=== PATIENT | female | born 1990 | race Caucasian/White ===

== ENCOUNTER 2022-03-21 20:38 | Emergency (ER) | payer BC ==
[~2022-03-21] VITALS: Ht 162.6 cm; Wt 72.6 kg
[2022-03-21] MEDS ORDERED: ESCI20TA39 (21:00)
[2022-03-21] MEDS ORDERED: ONDANSETRON 4 MG/2 ML (SDV) Z0FRAN IVP ONE (21:00)
[2022-03-21] MEDS ORDERED: FAMOTIDINE 20MG/2ML IV (PEPCID) IVP ONE (21:00)
[2022-03-21] MEDS ORDERED: diphenhydrAMINE 50 MG/ML INJ (BENADRYL) IM ONE (21:00)
[2022-03-21] MEDS ORDERED: methylPREDNISolone 125 MG (Solu-MEDROL) VIAL IVP ONE (21:00)
[2022-03-21] MEDS ORDERED: NS IV 1000 ML 1,000 ML IV STA (21:07)
--- NOTE | 2022-03-21 21:16 | ED General ---
General Chief Complaint: Allergic Reaction Stated Complaint: ALLERGIC REACTION - RASH ALL OVER Source of Information: Patient Exam Limitations: No Limitations History of Present Illness Date Seen by Provider: Mar 21, 2022 Time Seen by Provider: 21:14 Initial Comments This is a 31-year-old female that presents to the emergency room for evaluation of a possible allergic reaction. She states that she was at a [employer] and had a drink with blueberries and and she started feeling flushed and having a rash. 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 She subsequently started developing significant nausea and vomiting which did happen with her previous allergic reaction as well. She took 1 Benadryl but vomited shortly thereafter. Timing/Duration: 1 Day Severity: Moderate Allergies and Home Medications Allergies Coded Allergies: blueberry (Verified Allergy, Unknown, 03/21/22) strawberry (Verified Allergy, Unknown, Anaphylaxis, 03/21/22) Uncoded Allergies: contrast (Allergy, Unknown, 03/21/22) Patient Home Medication List Home Medication List Reviewed: Yes Diphenhydramine HCl (Benadryl) 25 Mg Capsule, 25 MG PO QID Prescribed by: Prabhjot Walls on 03/21/222209 Escitalopram Oxalate (Escitalopram Oxalate) 20 Mg Tablet, (Reported) Entered as Reported by: JOSE LOPEZ on 03/21/222099 Last Action: New Order Famotidine (Pepcid) 20 Mg Tablet, 20 MG PO BID Prescribed by: Prabhjot Walls on 03/21/222209 Prednisone (Prednisone) 20 Mg Tab, 20 MG PO BID Prescribed by: Prabhjot Walls on 03/21/222209 Review of Systems Review of Systems Constitutional: no symptoms reported EENTM: no symptoms reported Respiratory: no symptoms reported Cardiovascular: no symptoms reported Gastrointestinal: nausea, vomiting Genitourinary: no symptoms reported Musculoskeletal: no symptoms reported Skin: rash Psychiatric/Neurological: No Symptoms Reported Hematologic/Lymphatic: No Symptoms Reported Immunological/Allergic: no symptoms reported Past Ropxnum-Pppbyu-Kmpcdn Hx Patient Social History Tobacco Use?: No Substance use?: No Alcohol Use?: Yes Alcohol Frequency: Once in a while Pt feels they are or have been: No Past Medical History Surgery/Hospitalization HX: cervical fusion, ankle, cholecystectomy, shoulder Physical Exam Vital Signs Vital Signs - First Documented 03/21/22 20:50 Temp 36.4 Pulse 122 Resp 18 B/P (MAP) 120/81 (94) Pulse Ox 99 O2 Delivery Room Air Capillary Refill : Height, Weight, BMI Height: '" Weight: lbs. oz. kg; BMI Method: General Appearance: Mild Distress HEENT: PERRL/EOMI, TMs Normal, Pharynx Normal Neck: Full Range of Motion Respiratory: Chest Non Tender, Lungs Clear Cardiovascular: Tachycardia Gastrointestinal: Normal Bowel Sounds, Non Tender Back: Normal Inspection Extremity: Normal Capillary Refill, Non Tender Skin: Normal Color, Warm/Dry Progress/Results/Core Measures Suspected Sepsis SIRS Temperature: Pulse: Respiratory Rate: Blood Pressure / Mean: Results/Orders My Orders Orders - ADRIAN WALLS Ed Iv/Invasive Line Start (03/21/22 20:48) Diphenhydramine Injection (Benadryl Inje (03/21/22 21:00) Methylprednisolone Sod Succ (Solu-Medrol (03/21/22 21:00) Famotidine Injection (Pepcid Injection) (03/21/22 21:00) Ondansetron Injection (Zofran Injectio (03/21/22 21:00) Ns Iv 1000 Ml (Sodium Chloride 0.9%) (03/21/22 21:07) Medications Given in ED Current Medications Medications Dose Ordered Sig/Brigido Route Start Time Stop Time Status Last Admin Dose Admin Diphenhydramine HCl 25 mg ONCE ONCE IM 03/21/22 21:00 03/21/22 21:01 DC 03/21/22 20:56 25 MG Famotidine 20 mg ONCE ONCE IVP 03/21/22 21:00 03/21/22 21:01 DC 03/21/22 20:56 20 MG Methylprednisolone Sodium Succinate 125 mg ONCE ONCE IVP 03/21/22 21:00 03/21/22 21:01 DC 03/21/22 20:56 125 MG Ondansetron HCl 4 mg ONCE ONCE IVP 03/21/22 21:00 03/21/22 21:01 DC 03/21/22 21:13 4 MG Vital Signs/I&O 03/21/22 20:50 Temp 36.4 Pulse 122 Resp 18 B/P (MAP) 120/81 (94) Pulse Ox 99 O2 Delivery Room Air Capillary Refill : Departure Communication (Admissions) Patient is afebrile and tachycardic on exam. She states that she is always tachycardic and that she is supposed to be on medications but she has recently lost her primary care doctor. She was actively vomiting on exam and states this is normal when she has an allergic reaction. There is no visible rash at this time but she did show me a picture on her phone where she had some redness around the incision site on the left anterior neck. Impression Primary Impression: Allergic reaction Additional Impression: Nausea and vomiting Disposition: HOME, SELF-CARE Condition: Stable Departure-Patient Inst. Decision time for Depature: 22:12 Referrals: NO,LOCAL PHYSICIAN (PCP/Family) Primary Care Physician Patient Instructions: Skin Rash (DC), Nausea and Vomiting, Adult Scripts Prednisone (Prednisone) 20 Mg Tab 20 MG PO BID for 5 Days, #10 TAB Take 3 tabs(60mg)daily,decrease by 1/2 tab(10mg)every other day. Prov: ADRIAN WALLS 03/21/22 Famotidine (Pepcid) 20 Mg Tablet 20 MG PO BID for 5 Days, #10 TAB Prov: ADRIAN WALLS 03/21/22 Diphenhydramine HCl (Benadryl) 25 Mg Capsule 25 MG PO QID for 5 Days, #20 CAP Prov: ADRIAN WALLS 03/21/22 ADRIAN WALLS Mar 21, 2022 21:15
[2022-03-21] MEDS ORDERED: FAMO-119 PO (22:10)
[2022-03-21] MEDS ORDERED: DIPH25CA79 PO (22:10)
[2022-03-21] MEDS ORDERED: PRD20T PO (22:10)
[2022-03-21 22:14] VITALS: BP 106/71
== END 2022-03-21 22:16 | disposition home or self-care (01) ==
LOC: ER 20:41
DX: T78.04XA Anaphylactic reaction due to fruits and vegetables, initial encounter (principal); R11.2 Nausea with vomiting, unspecified; R00.0 Tachycardia, unspecified; Z91.018 Allergy to other foods